=== PATIENT | female | born 1970 | race African-American/Black ===

== ENCOUNTER 2021-07-13 13:53 | Inpatient (IN) | payer OTHER ==
[2021-07-13] MEDS ORDERED: MENTHOL/PHENOL 1 EACH UD MM PRN (15:47)
[2021-07-13] MEDS ORDERED: chlordiazePOXIDE HCL 25 MG CAPSULE PO PRN (15:47)
[2021-07-13] MEDS ORDERED: BISMUTH SUBSALICYLATE 524 MG/30 ML PO PRN (15:47)
[2021-07-13] MEDS ORDERED: ACETAMINOPHEN 325 MG TABLET (FP) PO PRN ×2 (15:47)
[2021-07-13] MEDS ORDERED: IBUPROFEN 400 MG TABLET (FP) PO PRN (15:47)
[2021-07-13] MEDS ORDERED: NICOTINE 10 MG CARTRIDGE (INHALER) IH PRN (15:47)
[2021-07-13] MEDS ORDERED: MAGNESIUM CITRATE 300 ML BOTTLE PO PRN (15:47)
[2021-07-13] MEDS ORDERED: MAG HYDROX/AL HYDROX/SIMETH 30 ML UNIT-DOSE CUP PO PRN (15:47)
[2021-07-13 19:12] VITALS: BMI 25.2
[2021-07-13] MEDS: hydrOXYzine PAMOATE 25 MG CAPSULE (FP) PO SCH ×2 (20:15→22:44)
[2021-07-13] MEDS: ONDANSETRON *ODT* 4 MG TABLET SL PRN (20:16)
[2021-07-13] MEDS ORDERED: cloNIDine HCL 0.1 MG TABLET PO ONE (20:43)
[2021-07-13] MEDS: THIAMINE HCL 100 MG TABLET (FP) PO SCH (21:46)
[2021-07-13] MEDS: chlordiazePOXIDE HCL 25 MG CAPSULE PO SCH ×2 (21:46→23:00)
[2021-07-13] MEDS: MELATONIN 5 MG TABLETS PO SCH (22:43)
[2021-07-14] MEDS: chlordiazePOXIDE HCL 25 MG CAPSULE PO SCH ×6 (00:27→22:40)
[2021-07-14] MEDS: hydrOXYzine PAMOATE 25 MG CAPSULE (FP) PO SCH ×5 (05:33→22:21)
[2021-07-14] MEDS: ONDANSETRON *ODT* 4 MG TABLET SL PRN (05:37)
[2021-07-14] MEDS: PRENATAL VITAMINS W/ FOLIC ACID TABLET (FP) PO SCH (10:29)
[2021-07-14] MEDS: METHOCARBAMOL 500 MG TABLET PO PRN (10:30)
[2021-07-14 11:49] LABS: BLOOD UREA NITROGEN 9.9 mg/dL (7-18); CALCIUM 9.7 mg/dL (8.5-10.1)
[2021-07-14 11:50] LABS: ALBUMIN 3.8 g/dl (3.4-5.0)
[2021-07-14 11:54] LABS: BILIRUBIN,TOTAL 0.7 mg/dL (0.2-1); TOT PROT 7.2 g/dl (6.4-8.2)
[2021-07-14 11:55] LABS: HEMOGLOBIN 12.1 GM/dL (10.7-15.3); MCH 29.3 pg (25.7-33.7); MCHC 32.6 g/dl (32.0-36.0); MEAN CELL VOLUME 90.1 fl (80-96); MEAN PLT VOLUME 10.2 fl (7.5-11.1); PLATELET COUNT 194 10^3/uL (134-434); RBC 4.11 M/mm3 (3.60-5.2); RDW 19.6 % (11.6-15.6); WHITE BLOOD COUNT 3.5 K/mm3 (4.0-10.0)
[2021-07-14] MEDS ORDERED: amLODIPine BESYLATE 10 MG TABLET (FP) PO SCH (16:00)
[2021-07-14] MEDS: amLODIPine BESYLATE 10 MG TABLET (FP) PO SCH (17:11)
[2021-07-14] MEDS: MELATONIN 5 MG TABLETS PO SCH (22:20)
[2021-07-14] MEDS: THIAMINE HCL 100 MG TABLET (FP) PO SCH (22:21)
[2021-07-15] MEDS: chlordiazePOXIDE HCL 25 MG CAPSULE PO SCH ×4 (06:11→22:33)
[2021-07-15] MEDS: hydrOXYzine PAMOATE 25 MG CAPSULE (FP) PO SCH ×5 (06:12→22:33)
[2021-07-15] MEDS: PRENATAL VITAMINS W/ FOLIC ACID TABLET (FP) PO SCH (10:53)
[2021-07-15] MEDS: METHOCARBAMOL 500 MG TABLET PO PRN (10:53)
[2021-07-15] MEDS: amLODIPine BESYLATE 10 MG TABLET (FP) PO SCH (10:53)
[2021-07-15] MEDS: THIAMINE HCL 100 MG TABLET (FP) PO SCH (22:33)
[2021-07-15] MEDS: MELATONIN 5 MG TABLETS PO SCH (22:33)
[2021-07-16] MEDS ORDERED: chlordiazePOXIDE HCL 10 MG CAPSULE PO PRN
[2021-07-16] MEDS: hydrOXYzine PAMOATE 25 MG CAPSULE (FP) PO SCH ×5 (06:29→22:08)
[2021-07-16] MEDS: chlordiazePOXIDE HCL 10 MG CAPSULE PO SCH ×4 (06:29→22:09)
[2021-07-16] MEDS: amLODIPine BESYLATE 10 MG TABLET (FP) PO SCH (10:20)
[2021-07-16] MEDS: METHOCARBAMOL 500 MG TABLET PO PRN (10:20)
[2021-07-16] MEDS: PRENATAL VITAMINS W/ FOLIC ACID TABLET (FP) PO SCH (10:20)
[2021-07-16] MEDS: THIAMINE HCL 100 MG TABLET (FP) PO SCH (22:08)
[2021-07-16] MEDS: MELATONIN 5 MG TABLETS PO SCH (22:08)
[2021-07-17] MEDS: hydrOXYzine PAMOATE 25 MG CAPSULE (FP) PO SCH ×5 (05:30→22:22)
[2021-07-17] MEDS: METHOCARBAMOL 500 MG TABLET PO PRN (05:30)
[2021-07-17] MEDS: chlordiazePOXIDE HCL 10 MG CAPSULE PO SCH ×2 (05:30→17:45)
[2021-07-17] MEDS: PRENATAL VITAMINS W/ FOLIC ACID TABLET (FP) PO SCH (10:17)
[2021-07-17] MEDS: amLODIPine BESYLATE 10 MG TABLET (FP) PO SCH (10:18)
[2021-07-17] MEDS: MAGNESIUM HYDROX 2400MG/30ML ORAL SUSPENSION 30 ML CUP PO PRN (17:47)
[2021-07-17] MEDS: MELATONIN 5 MG TABLETS PO SCH (22:22)
[2021-07-17] MEDS: THIAMINE HCL 100 MG TABLET (FP) PO SCH (22:22)
[2021-07-18] MEDS ORDERED: chlordiazePOXIDE HCL 10 MG CAPSULE PO ONE (05:00)
[2021-07-18] MEDS: hydrOXYzine PAMOATE 25 MG CAPSULE (FP) PO SCH ×3 (06:17→13:27)
[2021-07-18] MEDS: MAGNESIUM HYDROX 2400MG/30ML ORAL SUSPENSION 30 ML CUP PO PRN (06:19)
[2021-07-18] MEDS: amLODIPine BESYLATE 10 MG TABLET (FP) PO SCH (09:58)
[2021-07-18] MEDS: PRENATAL VITAMINS W/ FOLIC ACID TABLET (FP) PO SCH (09:58)
[2021-07-18] MEDS: METHOCARBAMOL 500 MG TABLET PO PRN (09:58)
[2021-07-18 13:20] VITALS: BP 125/73; PULSE 80; TEMP 98.3
== END 2021-07-18 14:00 | disposition home or self-care (01) | DRG 775 ==
LOC: YASAS 13:53 → Y6N 19:10
PROVIDERS: ADMIT Allergy & Immunology; ATTEND Allergy & Immunology
PROC: HZ2ZZZZ Detoxification Services for Substance Abuse Treatment (ICD-10-PCS; principal; 2021-07-13)
DX: F10.230 Alcohol dependence with withdrawal, uncomplicated (principal); D72.819 Decreased white blood cell count, unspecified; E78.5 Hyperlipidemia, unspecified; I10 Essential (primary) hypertension
CPT/HCPCS: 36415; 80053; 85027; 86780; C9803; J0735; Q0162; U0003; U0005